=== PATIENT | female | born 1990 | race Caucasian/White ===

== ENCOUNTER 2020-03-13 14:58 | Outpatient (REF) | payer MEDICAID, SELFPAY | END 2020-03-13 14:59 | disposition home or self-care (01) | LOC: HO.LAB 14:58 | PROVIDERS: Visit Provider Internal Medicine | DX: Z20.828 Contact with and (suspected) exposure to other viral communicable diseases (principal) | CPT/HCPCS: 36415; 87635 ==

== ENCOUNTER 2020-08-26 23:14 | Emergency (ER) | payer MEDICAID, SELFPAY ==
--- NOTE | 2020-08-26 | ECG_ITS ---
Test Reason : TACHYCARDIA Blood Pressure : / mmHG Vent. Rate : 142 BPM Atrial Rate : 142 BPM P-R Int : 120 ms QRS Dur : 076 ms QT Int : 354 ms P-R-T Axes : 052 090 029 degrees QTc Int : 544 ms Sinus tachycardia Rightward axis Cannot rule out Anterior infarct , age undetermined - could be from body habitus/lead placement Nonspecific ST and T wave abnormality Abnormal ECG No previous ECGs available Referred By: Diana Peter Electronically Signed By:RAMILA MARTINS
[2020-08-26 23:20] VITALS: BP 137/91; PULSE 140; RESP 20; TEMP 37.2; O2SAT 96; BMI 29.4
--- NOTE | 2020-08-26 23:39 | ED.GENADULT ---
HPI - General Adult General Chief complaint: Overdose Stated complaint: etoh Time Seen by Provider: 08/26/20 23:23 Source: EMS Mode of arrival: EMS Limitations: no limitations History of Present Illness HPI narrative: Patient comes emergency room via EMS. Earlier this evening, patient mixed marijuana extract drops, smoking marijuana, and alcohol. Patient started complaining of tremors, feeling very anxious, EMS was called by the patient's roommates, and arrived to the emergency room. Patient is awake, very anxious, denies chest pain or shortness of breath, no abdominal pain, no fever vomiting or diarrhea. Related Data Allergies Allergy/AdvReac Type Severity Reaction Status Date / Time Unable to Assess Allergy Verified 08/26/20 23:40 Review of Systems Review of Systems: Constitutional : No Weight loss, No Fever, complaining of feeling cold ENT/Mouth : No Hearing loss, No Ear Pain, No Nasal Congestion, No Sinus Pain, No Hoarseness, No sore throat, No Rhinorrhea, No Swallowing Difficulty Eyes: No Eye Pain, No Swelling, No Redness, No Foreign Body, No Discharge, No Vision Changes Cardiovascular : No Chest Pain, No SOB, No Dyspnea on Exertion, No Orthopnea, No Edema, complaining of heart palpitations/heart racing Respiratory : No Cough, No Sputum, No Wheezing, No Smoke Exposure, No Dyspnea Gastrointestinal : No Nausea, No Vomiting, No Diarrhea, No Constipation, No abdominal Pain, No Hematochezia, No Melena Genitourinary : no irregular bleeding, No Dysuria, No Urinary Frequency, No Hematuria, No Urinary Incontinence, No Urgency, No Flank Pain, No Urinary Flow Changes, No Hesitancy Musculoskeletal : No joint pain, No Myalgias, No Joint Swelling Skin : No Skin Lesions, No rash Neuro : No Weakness, No Numbness, No Paresthesias, No Loss of Consciousness, No Dizziness, No Headache Psych : Feeling anxious, denies suicidal homicidal ideation Heme/Lymph: No Bruising, No Bleeding,No Lymphadenopathy Endocrine : No Polyuria, No Polydipsia, No Temperature Intolerance PMFSH Past Medical History Medical History Marijuana abuse Social History Social History Alcohol intake: current Alcohol intake frequency: a few times a week Alcohol type: wine and hard liquor Smoked in Last 30 Days: No Substance Use Type: Marijuana and Other Substance Use Type Other:: sativa tincture Substance Use Frequency: Socially Last Used Substance: Just Prior to Admission Any prior treatment program specific to substance use: No Advance Directives: No Advance Directives Information Provided: No Physical Exam Vital Signs: Vital Signs: Last Vital Signs Temp 100.6 F H 08/27/20 00:23 Pulse 130 H 08/27/20 03:41 Resp 18 08/27/20 03:41 BP 127/80 08/27/20 03:41 Pulse Ox 95 08/27/20 03:41 Body Mass Index 29.4 Appearance: Alert. Oriented X3. Very anxious, jittery Eyes: Pupils approximately 5 mm bilaterally, Pupils equal, round and reactive to light. ENT: Pharynx normal. Neck: Normal inspection. Neck supple. No lymph nodes noted. No crepitus CVS: Tachycardic, heart rate between 140 and 150, strong pulses, no murmurs Respiratory: No respiratory distress. Breath sounds normal. No Wheezing. No rales Abdomen: Soft and nontender. No rigidity. No distention. good BS x4 Skin: Skin warm and dry. Normal skin color. Normal skin turgor. Extremities: No lower extremity edema. No Lacerations. No Rash Neuro: Oriented X 3. Cranial nerves 2-12 grossly intact Course Course Course Narrative: Patient is now awake, alert, able to ambulate by herself, on re-evaluation patient denies suicidal/ homicidal ideation. Patient feeling better, less anxious Medical Decision Making Lab Data Labs: Lab Results 08/27/20 Range/Units 04:27 Urine Opiates Screen Not Detected (Not Detect) Ur Barbiturates Screen Not Detected (Not Detect) Ur Phencyclidine Scrn Not Detected (Not Detect) Ur Amphetamines Screen Not Detected (Not Detect) U Benzodiazepines Scrn Not Detected (Not Detect) Urine Cocaine Screen Not Detected (Not Detect) U Marijuana (THC) Screen POSITIVE H (Not Detect) ECG Data Attestation: I personally reviewed and interpreted this ECG as follows: (Sinus tachycardia, heart rate 142, nonspecific ST and T-wave abnormalities, QTC 544 with a QT of 354) Discharge Plan Discharge Clinical Impression: Accidental marijuana overdose Qualifiers: Encounter type: initial encounter Qualified Code(s): T40.7X1A - Poisoning by cannabis (derivatives), accidental (unintentional), initial encounter Patient Disposition: Home, Self-Care Instructions: Cannabis Abuse (ED) Additional Instructions: Please follow-up with your primary care physician tomorrow. If you have any worsening or new symptoms, please return to the emergency room or call 911
--- NOTE | 2020-08-26 23:40 | PC.NURSE ---
20g left forearm. IVF infusing per verbal order by md for tachycardia. Per ems: Patient took high dose THC+marjuana+Etoh. VS 138/64, 140 hr, bgl 122, 20. pt is not answering medical questions will only say woah.
[2020-08-27] VITALS (8 sets, daily range): BP systolic 125–131; BP diastolic 72–85; PULSE 108–142; RESP 18–21; TEMP 37.2–38.1; O2SAT 95–97
--- NOTE | 2020-08-27 03:46 | PC.NURSE ---
pt talking in full sentences more alert and now remembering the evening more. pt hr is still elevated and dr ray is aware. ivf infusing.
[2020-08-27 04:53] LABS: Amphetamine Screen Urine Not Detected (Not Detect); Barbiturates, Urine Not Detected (Not Detect); Benzodiazepines Screen Urine Not Detected (Not Detect); Cannabinoid Screen Urine POSITIVE (Not Detect); Cocaine Screen Urine Not Detected (Not Detect); Opiate Screen Urine Not Detected (Not Detect); Phencyclidine Screen Urine Not Detected (Not Detect)
== END 2020-08-27 06:20 | disposition home or self-care (01) ==
PROVIDERS: Emergency Provider Emergency Medicine
DX: T40.7X1A Poisoning by cannabis (derivatives), accidental (unintentional), initial encounter (principal); G25.1 Drug-induced tremor; Y92.019 Unspecified place in single-family (private) house as the place of occurrence of the external cause; F12.10 Cannabis abuse, uncomplicated; R00.0 Tachycardia, unspecified
CPT/HCPCS: 80307; 87086; 87147; 93005; 99284; 99285